=== PATIENT | female | born 1975 | race Caucasian/White ===

== ENCOUNTER 2021-08-15 13:16 | Outpatient (CLI) | payer OTHER, SELFPAY ==
--- NOTE | ~2021-08-15 | US_ITS ---
US retroperitoneal comp 08/15/2021 14:16 Procedure: Realtime transabdominal ultrasound of the kidneys and bladder. Indication: Pelvic pain Comparison: No prior studies for comparison. Findings: Renal echotexture is normal bilaterally without hydronephrosis, contour deforming mass or r enal calculus. The right kidney measures 10 cm and left kidney measures 10.6 cm. Bladder within norm al limits. Impression: 1: Unremarkable renal ultrasound. No stones, masses or hydronephrosis. Reviewed, dictated and finalized at location B. Impression: 1: Unremarkable renal ultrasound. No stones, masses or hydronephrosis.
== END 2021-08-15 13:17 | disposition home or self-care (01) ==
LOC: ANHIMG 13:22
PROVIDERS: Visit Provider Nurse Practitioner Family
DX: R10.2 Pelvic and perineal pain (principal)
CPT/HCPCS: 76770